=== PATIENT | female | born 1990 | race Caucasian/White ===

== ENCOUNTER 2016-05-24 12:00 | Outpatient (CLI) | payer BC ==
--- NOTE | 2016-05-24 12:32 | DIAGNOSTIC IMAGING REPORT ---
PROCEDURE: US OB LIMITED INDICATION: CHECK POSITIONING TECHNIQUE: Transabdominal mercado scale and color Doppler imaging was obtained of the third trimester gravid uterus. COMPARISON: None. FINDINGS: Single live intrauterine is in vertex presentation. Regular heart rate at 167 beats per minute. Placenta is posterior and has a normal appearance without previa or abruption. The cervix is closed and measures approximately 3.1 cm in length. Amniotic fluid index is between the 2.5 and 5th percentile measuring about 6.8 cm. stomach, kidneys, and urinary bladder are within normal limits. IMPRESSION: 1. Vertex presentation of dee . 2. Amniotic fluid index between the 2.5 and 5th percentile.
== END 2016-05-24 23:00 ==
LOC: US SRH 12:00
DX: Z34.83 Encounter for supervision of other normal pregnancy, third trimester (principal); Z3A.38 38 weeks gestation of pregnancy

== ENCOUNTER 2016-05-30 10:48 | Outpatient (CLI) | payer BC ==
--- NOTE | 2016-05-30 12:42 | DIAGNOSTIC IMAGING REPORT ---
PROCEDURE: US BIOPHYSICAL PROFILE (OB) INDICATION: JOSE ALFREDO,BPP TECHNIQUE: High-resolution transabdominal scans during 30-minute observation time interval. COMPARISON: OB ultrasound 05/24/2016. FINDINGS: Single intrauterine with vertex presentation and heart rate 140 bpm. Normal movement, tone and JOSE ALFREDO (8.6 cm, previously 6.8 cm), for biophysical profile score 6/8. No breathing was observed. Cord ratio of 2.2. IMPRESSION: 1. Single live intrauterine 2. Biophysical profile score 6/8 3. Results called to the provider (voicemail).
== END 2016-05-30 23:00 ==
LOC: US SRH 10:48
DX: Z34.90 Encounter for supervision of normal pregnancy, unspecified, unspecified trimester (principal)

== ENCOUNTER 2016-06-03 13:45 | Outpatient (CLI) | payer BC ==
--- NOTE | 2016-06-03 14:35 | DIAGNOSTIC IMAGING REPORT ---
PROCEDURE: US OB LIMITED INDICATION: JOSE ALFREOD TECHNIQUE: Coto scale and color Doppler sonographic images obtained of the gravid uterus. COMPARISON: Biophysical OB ultrasound 05/30/2016 FINDINGS: Single intrauterine with vertex presentation, left fundal placenta and heart rate 138 bpm. Cervix is closed and measures 3.5 cm. JOSE ALFREDO measures 8 cm (largest pocket 2.7 cm). Previous JOSE ALFREDO 8.6 cm. IMPRESSION: 1. Single live intrauterine with vertex presentation 2. JOSE ALFREDO 8 cm, previously 8.6 cm.
--- NOTE | 2016-06-03 14:35 | DIAGNOSTIC IMAGING REPORT ---
PROCEDURE: US OB LIMITED INDICATION: JOSE ALFREDO TECHNIQUE: Coto scale and color Doppler sonographic images obtained of the gravid uterus. COMPARISON: Biophysical OB ultrasound 05/30/2016 FINDINGS: Single intrauterine with vertex presentation, left fundal placenta and heart rate 138 bpm. Cervix is closed and measures 3.5 cm. JOSE ALFREDO measures 8 cm (largest pocket 2.7 cm). Previous JOSE ALFREDO 8.6 cm. IMPRESSION: 1. Single live intrauterine with vertex presentation 2. JOSE ALFREDO 8 cm, previously 8.6 cm.
== END 2016-06-03 23:00 ==
LOC: US SRH 13:45
DX: Z34.90 Encounter for supervision of normal pregnancy, unspecified, unspecified trimester (principal)